=== PATIENT | male | born 1950 | race Caucasian/White ===

== ENCOUNTER 2017-12-27 16:19 | Emergency (ER) | payer OTHER, MEDICARE ==
[~2017-12-27] VITALS: Ht 165.1 cm; Wt 136.0 kg
[2017-12-27 16:24] VITALS: BP 156/81; PULSE 81; RESP 16; TEMP 98.7; O2SAT 94
[2017-12-27] MEDS ORDERED: ATOR10TA15 PO (16:53)
[2017-12-27] MEDS ORDERED: LISI2.5T3 PO (16:53)
[2017-12-27] MEDS ORDERED: DICL25 PO (16:53)
[2017-12-27] MEDS ORDERED: ASPI81CH7 CHEW (16:53)
[2017-12-27 17:00] VITALS: O2SAT 94
[2017-12-27] MEDS ORDERED: SODIUM CHLORIDE 0.9% FLUSH 10 ML FLUSH IV FLUSH PRN (17:15)
[2017-12-27] MEDS ORDERED: MORPHINE SULFATE 2 MG/ML INJ IV PUSH ONE (17:30)
[2017-12-27 17:36] LABS: BILIRUBIN, URINE NEG (NEG); BLOOD, URINE NEG (NEG); GLUCOSE,URINE 1000 OR GREATER mg/dL (NEG); KETONE, URINE NEG (NEG); NITRITE,URINE NEG (NEG); PH, URINE 6.5 (5.0-8.5); URINE LEUKOCYTE ESTERASE NEG (NEG)
[2017-12-27 17:38] LABS: AUTOMATED NEUTROPHIL # 4.5 TH/MM3 (1.8-7.7); BASOPHIL % 0.6 % (0.0-2.0); EOSINOPHIL # 0.2 TH/MM3 (0-0.4); EOSINOPHIL % 2.3 % (0.0-4.0); HEMATOCRIT 39.8 % (39.0-51.0); HEMOGLOBIN 12.9 GM/DL (13.0-17.0); LYMPH % 32.5 % (9.0-44.0); LYMPHOCYTE # 2.5 TH/MM3 (1.0-4.8); MEAN CELL VOLUME 85.6 FL (80.0-100.0); MEAN CORPUSCULAR HEMOGLOBIN 27.8 PG (27.0-34.0); MEAN CORPUSCULAR HGB CONC 32.5 % (32.0-36.0); MEAN PLATELET VOLUME 7.1 FL (7.0-11.0); MONO % 8.2 % (0.0-8.0); MONOCYTE # 0.6 TH/MM3 (0-0.9); NEUT % 56.4 % (16.0-70.0); PLATELET COUNT 299 TH/MM3 (150-450); RED BLOOD COUNT 4.65 MIL/MM3 (4.50-5.90); RED CELL DISTRIBUTION WIDTH 13.2 % (11.6-17.2); WHITE BLOOD COUNT 7.8 TH/MM3 (4.0-11.0)
--- NOTE | 2017-12-27 17:38 | PD ---
HPI Chief Complaint: Flank/Kidney Pain Time Seen by Provider: 17:03 Travel History International Travel<30 days: No Contact w/Intl Traveler<30days: No Traveled to known affect area: No History of Present Illness HPI 67-year-old male here for evaluation of left lower back pain. 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 He was seen by a chiropractor today who believe that there might be something else going on besides his chronic back pain such as a kidney stone and advised that he present to the emergency department for further evaluation. The patient reports worsening pain over the last 3 weeks which seemed to have improved with taking hydrocodone at home and couple days ago, however the pain significantly worsened today. Pain is sharp, worse with movements, improved with rest. He denies fevers or chills. No hematuria or dysuria. No urinary or bowel incontinence or retention. No lower extremity weakness, deficits, or paresthesias. PFSH Past Medical History Hx Anticoagulant Therapy: Yes (ASA 81 MG PO DAILY) Cardiovascular Problems: Yes (CHOLESTEROL, HTN) Diabetes: Yes (PREDIABETIC) Patient Takes Glucophage: No Diminished Hearing: No Tetanus Vaccination: < 5 Years Influenza Vaccination: Yes Social History Alcohol Use: No Tobacco Use: No Substance Use: No Allergies-Medications (Allergen,Severity, Reaction): Coded Allergies: onion (Verified Allergy, Intermediate, N/V/GI UPSET/CRAMPING. , 12/27/17) Reported Meds & Prescriptions Reported Meds & Active Scripts Active Reported Diclofenac Sodium DR (Diclofenac Sodium) 25 Mg Tabdr 25 Mg PO BID Aspirin Children's (Aspirin) 81 Mg Chew 81 Mg CHEW DAILY Lisinopril 2.5 Mg Tab 2.5 Mg PO DAILY Atorvastatin (Atorvastatin Calcium) 10 Mg Tab 5 Mg PO HS Review of Systems Except as stated in HPI: all other systems reviewed are Neg Physical Exam Narrative GENERAL: Well-developed, well-nourished, overweight, sitting comfortably on stretcher, no apparent distress. SKIN: Focused skin assessment warm/dry. No rash. HEAD: Atraumatic. Normocephalic. EYES: Pupils equal and round. No scleral icterus. No injection or drainage. ENT: Mucous membranes pink and moist. NECK: Trachea midline. No JVD. CARDIOVASCULAR: Regular rate and rhythm. No murmur appreciated. RESPIRATORY: No accessory muscle use. Clear to auscultation. Breath sounds equal bilaterally. GASTROINTESTINAL: Abdomen soft, non-tender, nondistended. MUSCULOSKELETAL: No obvious deformities. No clubbing. No cyanosis. No edema. Mild left CVA tenderness. No right CVA tenderness. Mild left her spinal lumbar tenderness. No midline vertebral step-off. NEUROLOGICAL: Awake and alert. No obvious cranial nerve deficits. Motor grossly within normal limits. Normal speech. Normal range of flexion and extension and bilateral foot, ankle, and knees with normal muscle strength bilaterally. Great toe extension present bilaterally. PSYCHIATRIC: Appropriate mood and affect; insight and judgment normal. Data Data Last Documented VS Vital Signs Date Time Temp Pulse Resp B/P (MAP) Pulse Ox O2 Delivery O2 Flow Rate FiO2 12/27/17 17:07 16 12/27/17 17:00 94 12/27/17 16:24 98.7 81 156/81 (106) Orders Orders Complete Blood Count With Diff (12/27/17 17:15) Comprehensive Metabolic Panel (12/27/17 17:15) Lipase (12/27/17 17:15) Prothrombin Time / Inr (Pt) (12/27/17 17:15) Act Partial Throm Time (Ptt) (12/27/17 17:15) Urinalysis - C+S If Indicated (12/27/17 17:15) Ct Abd/Pel W/O Iv Contrast (12/27/17 17:15) Iv Access Insert/Monitor (12/27/17 17:15) Ecg Monitoring (12/27/17 17:15) Oximetry (12/27/17 17:15) Sodium Chloride 0.9% Flush (Ns Flush) (12/27/17 17:15) Ct Lumb Spine W/O Contrast (12/27/17 ) Morphine Inj (Morphine Inj) (12/27/17 17:30) Labs Laboratory Tests Test 12/27/17 17:00 White Blood Count 7.8 TH/MM3 Red Blood Count 4.65 MIL/MM3 Hemoglobin 12.9 GM/DL Hematocrit 39.8 % Mean Corpuscular Volume 85.6 FL Mean Corpuscular Hemoglobin 27.8 PG Mean Corpuscular Hemoglobin Concent 32.5 % Red Cell Distribution Width 13.2 % Platelet Count 299 TH/MM3 Mean Platelet Volume 7.1 FL Neutrophils (%) (Auto) 56.4 % Lymphocytes (%) (Auto) 32.5 % Monocytes (%) (Auto) 8.2 % Eosinophils (%) (Auto) 2.3 % Basophils (%) (Auto) 0.6 % Neutrophils # (Auto) 4.5 TH/MM3 Lymphocytes # (Auto) 2.5 TH/MM3 Monocytes # (Auto) 0.6 TH/MM3 Eosinophils # (Auto) 0.2 TH/MM3 Basophils # (Auto) 0.0 TH/MM3 CBC Comment DIFF FINAL Differential Comment Prothrombin Time 9.9 SEC Prothromb Time International Ratio 1.0 RATIO Activated Partial Thromboplast Time 27.7 SEC Urine Color YELLOW Urine Turbidity CLEAR Urine pH 6.5 Urine Specific [place] 1.026 Urine Protein NEG mg/dL Urine Glucose (UA) 1000 OR GREATER mg/dL Urine Ketones NEG mg/dL Urine Occult Blood NEG Urine Nitrite NEG Urine Bilirubin NEG Urine Leukocyte Esterase NEG Urine RBC 0-2 /hpf Urine WBC 3-5 /hpf Urine Squamous Epithelial Cells 0-5 /hpf Urine Bacteria NONE /hpf Microscopic Urinalysis Comment CULT NOT INDICATED Blood Urea Nitrogen 15 MG/DL Creatinine 0.83 MG/DL Random Glucose 164 MG/DL Total Protein 8.5 GM/DL Albumin 3.8 GM/DL Calcium Level 9.3 MG/DL Alkaline Phosphatase 87 U/L Aspartate Amino Transf (AST/SGOT) 38 U/L Alanine Aminotransferase (ALT/SGPT) 53 U/L Total Bilirubin 0.3 MG/DL Sodium Level 136 MEQ/L Potassium Level 3.9 MEQ/L Chloride Level 102 MEQ/L Carbon Dioxide Level 28.7 MEQ/L Anion Gap 5 MEQ/L Estimat Glomerular Filtration Rate 93 ML/MIN Lipase 99 U/L [facility] Medical Decision Making Medical Screen Exam Complete: Yes Emergency Medical Condition: Yes Differential Diagnosis Acute on chronic back pain, nephrolithiasis, pyelonephritis, ureterolithiasis, diverticulitis, muscular strain Narrative Course Vital signs show heart rate 81, blood pressure 156/81, pulse ox 94% on room air , oral temp of 98.7F. CBC: WBC 7.8, hemoglobin 12.9, hematocrit 39.8, platelets 299 CMP is remarkable for random glucose 164, otherwise unremarkable. Lipase is 99. UA shows glucosuria, not suggestive of UTI, no hematuria. CT abdomen pelvis: CONCLUSION: No evidence of kidney stones or hydronephrosis CT lumbar spine: CONCLUSION: Degenerative changes throughout. No acute bony findings Patient was made aware of all findings. He is resting comfortably. He has no red flags for low back pain. This is an acute on chronic issue. I will give him a prescription for some pain medication and muscle relaxants. He was advised to follow-up with his physician at the [place] as soon as possible. He was advised on when to return to the emergency department. He verbalizes understanding and agreement with plan. Diagnosis Primary Impression: Acute exacerbation of chronic low back pain Referrals: Primary Care Physician 3 days Additional Instructions: Follow-up with your primary care physician this week. Return to the emergency department for worsening symptoms or any other concerns. Scripts Cyclobenzaprine (Flexeril) 10 Mg Tab 10 MG PO TID for Muscle Spasm, #12 TAB 0 Refills Prov: Cal Aguillon MD 12/27/17 Oxycodone-Acetaminophen (Percocet) 10-325 mg Tab 1 TAB PO Q6H Y for PAIN, #10 TAB 0 Refills Prov: Cal Aguillon MD 12/27/17 Disposition: 01 DISCHARGE HOME Condition: Stable Cal Aguillon MD Dec 27, 2017 17:38
[2017-12-27 17:46] LABS: CHLORIDE 102 MEQ/L (98-107); SODIUM (NA) 136 MEQ/L (136-145)
[2017-12-27 17:49] LABS: CALCIUM 9.3 MG/DL (8.5-10.1)
[2017-12-27 17:50] LABS: ALBUMIN 3.8 GM/DL (3.4-5.0); BICARBONATE 28.7 MEQ/L (21.0-32.0); BLOOD UREA NITROGEN 15 MG/DL (7-18); GLUCOSE,RANDOM 164 MG/DL (74-106)
[2017-12-27 17:53] LABS: ALT (GPT) 53 U/L (12-78); AST (GOT) 38 U/L (15-37); CREATININE 0.83 MG/DL (0.60-1.30); GLOMERULAR FILTRATION RATE 93 ML/MIN (>89)
[2017-12-27 17:54] LABS: TOTAL BILIRUBIN ADULT 0.3 MG/DL (0.2-1.0); TOTAL PROTEIN 8.5 GM/DL (6.4-8.2)
[2017-12-27 17:55] LABS: ALKALINE PHOSPHATASE 87 U/L (45-117)
[2017-12-27 17:59] LABS: URINE COLOR YELLOW (YELLW/STRAW)
[2017-12-27 18:00] LABS: RBC, URINE 0-2 /hpf (0-3); SQUAMOUS EPITHELIAL CELL URINE 0-5 /hpf (0-5)
[2017-12-27 18:25] LABS: PROTHROMBIN TIME - PATIENT 9.9 SEC (9.8-11.6)
--- NOTE | 2017-12-27 19:17 | RADRPT ---
EXAM DATE/TIME: 12/27/2017 18:40 [facility] COMPARISON: No previous studies available for comparison. INDICATIONS : Left flank pain. ORAL CONTRAST: No oral contrast ingested. RADIATION DOSE: 27.92 CTDIvol (mGy) MEDICAL HISTORY : Diabetes mellitus type 2. Hypertension. SURGICAL HISTORY : None. ENCOUNTER: Initial ACUITY: 3 weeks PAIN SCALE: 10/10 LOCATION: Left flank TECHNIQUE: Volumetric scanning of the abdomen and pelvis was performed. Using automated exposure control and ad justment of the mA and/or kV according to patient size, radiation dose was kept as low as reasonably achievable to obtain optimal diagnostic quality images. DICOM format image data is available electro nically for review and comparison. FINDINGS: LOWER LUNGS: The visualized lower lungs are clear. LIVER: Visualized portions are grossly unremarkable. SPLEEN: Normal size without lesion. PANCREAS: Within normal limits. KIDNEYS: Small cyst arising in the anterior pole cortex of the left kidney. No evidence of hydronephrosis or s tone. Ureters are normal in course and caliber throughout ADRENAL GLANDS: Within normal limits. VASCULAR: There is no aortic aneurysm. BOWEL/MESENTERY: The stomach, small bowel, and colon demonstrate no acute abnormality. There is no free intraperitone al air or fluid. ABDOMINAL WALL: Within normal limits. RETROPERITONEUM: There is no lymphadenopathy. BLADDER: No wall thickening or mass. REPRODUCTIVE: Within normal limits. INGUINAL: There is no lymphadenopathy or hernia. MUSCULOSKELETAL: Within normal limits for patient age. CONCLUSION: No evidence of kidney stones or hydronephrosis Ty Desai MD on December 27, 2017 at 19:13 Board Certified Radiologist. This report was verified electronically.
--- NOTE | 2017-12-27 19:18 | RADRPT ---
EXAM DATE/TIME: 12/27/2017 18:40 [facility] COMPARISON: No previous studies available for comparison. INDICATIONS : Left low back pain. RADIATION DOSE: ; Reconstructed from previous dataset, no dose MEDICAL HISTORY : Hypertension. Diabetes mellitus type 2. SURGICAL HISTORY : None. ENCOUNTER: Initial ACUITY: 3 weeks PAIN SCALE: 10/10 LOCATION: Left lumbar spine. TECHNIQUE: Volumetric scanning of the lumbar spine was performed. Multiplanar reconstructions in the sagittal, coronal and oblique axial planes were performed. Using automated exposure control and adjustment of the mA and/or kV according to patient size, radiation dose was kept as low as reasonably achievable t o obtain optimal diagnostic quality images. DICOM format image data is available electronically for review and comparison. FINDINGS: Lumbar spinal alignment is satisfactory. There is no evidence of fracture or destructive change. Ther e is degenerative change present throughout with small endplate osteophytes primarily ventral at all visualized levels. Disc space narrowing at all visualized levels. There is moderate arthritic change in the posterior facet joints, most conspicuously at the lumbosacral junction. There is no evidence o f paraspinal mass or hematoma. CONCLUSION: Degenerative changes throughout. No acute bony findings Ty Desai MD on December 27, 2017 at 19:15 Board Certified Radiologist. This report was verified electronically.
[2017-12-27] MEDS ORDERED: CYCL10TA PO (19:35)
[2017-12-27] MEDS ORDERED: PERC10TA27 PO (19:35)
[2017-12-27 19:58] VITALS: BP 148/78
== END 2017-12-27 19:58 | disposition home or self-care (01) ==
LOC: PHED 16:19
DX: M54.5 Low back pain (principal); G89.29 Other chronic pain; I10 Essential (primary) hypertension; E11.9 Type 2 diabetes mellitus without complications; Z79.82 Long term (current) use of aspirin
CPT/HCPCS: 72131; 74176; 80053; 81001; 83690; 85025; 85610; 85730; 96374; 99285; J2270